=== PATIENT | male | born 1975 | race Asian ===

== ENCOUNTER 2025-02-12 11:51 | Emergency (ER) | payer OTHER ==
[~2025-02-12] VITALS: Ht 175.3 cm; Wt 83.0 kg
[2025-02-12] MEDS ORDERED: OMEP-148 PO (12:02)
[2025-02-12] MEDS ORDERED: ATOR20TA PO (12:02)
[2025-02-12] MEDS ORDERED: LISI-892 PO (12:02)
[2025-02-12] MEDS ORDERED: METF-1211 PO (12:02)
[2025-02-12] MEDS ORDERED: LEVA15HF3 IH (12:02)
[2025-02-12 12:03] VITALS: TEMP 98.3
[2025-02-12] MEDS: LIDOCAINE 5% TRANSDERMAL PATCH TD ONE (13:09)
[2025-02-12] MEDS: KETOROLAC TROMETHAMINE 30 MG/ML VIAL IM ONE (13:09)
[2025-02-12 14:22] VITALS: BP 124/71; PULSE 74; RESP 17; O2SAT 98
== END 2025-02-12 14:30 ==
LOC: EMS 11:51
DX: M54.41 Lumbago with sciatica, right side (principal); R20.2 Paresthesia of skin; R20.0 Anesthesia of skin; E11.9 Type 2 diabetes mellitus without complications; E78.00 Pure hypercholesterolemia, unspecified; Z79.899 Other long term (current) drug therapy
CPT/HCPCS: 99283; 82962; 96372; J1885